=== PATIENT | female | born 1955 | race African-American/Black ===

== ENCOUNTER 2018-07-01 06:24 | Emergency (ER) | payer OTHER ==
[2018-07-01] MEDS ORDERED: SODIUM CHLORIDE 0.9% 1,000 ML IV STA (06:52)
[2018-07-01] MEDS ORDERED: ONDANSETRON 4 MG/2 ML VIAL IVP STA (06:54)
[2018-07-01] MEDS ORDERED: MECLIZINE 12.5 MG TAB PO STA (06:54)
--- NOTE | 2018-07-01 06:54 | ED ---
General Adult HPI - General Source: patient, family Mode of arrival: wheelchair Limitations: no limitations <Hoang Randhawa - Last Filed: 07/01/18 06:53> <Orion Cunningham - Last Filed: 07/01/18 09:00> - General Chief complaint: Dizziness Stated complaint: dizziness - History of Present Illness Initial comments: Dictation was produced using [employer] dictation software. please excuse any grammatical, word or spelling errors. Chief Complaint: 62-year-old -Citizen Of [place] female withpast medical history presents with dizziness, nausea and vomiting. History of Present Illness: Patient is 62-year-old female with no apparent medical problems presents with dizziness, nausea and vomiting since waking this morning. Patient states that she's been feeling nauseated upon waking. She did feel some GERD-like symptoms last night. She went to bed and woke up with symptoms. Patient denies any ataxia. She denies the sensation as if the room is spinning. Denies any diplopia or double vision. She denies any mitigating or exacerbating factors to her dizziness. Patient denies any edema medications. She does smoke tobacco. No history of surgeries. Patient had multiple bouts of clear emesis today. Denies any abdominal pain. Patient has no pain complaints. Patient states she's been having runny nose and cough today. She has sick contacts in the household with her granddaughter. Patient is currently unemployed. The ROS documented in this emergency department record has been reviewed and confirmed by me. Those systems with pertinent positive or negative responses have been documented in the HPI. All other systems are other negative and/or noncontributory. (Hoang Randhawa) - Related Data Previous Rx's Medication Instructions Recorded Meclizine [Antivert] 25 mg PO TID #20 tab 07/01/18 Allergies Allergy/AdvReac Type Severity Reaction Status Date / Time No Known Allergies Allergy Verified 07/01/18 06:29 Review of Systems ROS Other: All systems not noted in ROS Statement are negative. <Hoang Randhawa - Last Filed: 07/01/18 06:53> ROS Other: All systems not noted in ROS Statement are negative. <Orion Cunningham - Last Filed: 07/01/18 09:00> ROS Statement: Those systems with pertinent positive or pertinent negative responses have been documented in the HPI. Past Medical History Past Medical History: No Reported History History of Any Multi-Drug Resistant Organisms: None Reported Past Surgical History: No Surgical Hx Reported Smoking Status: Current every day smoker Past Alcohol Use History: None Reported Past Drug Use History: None Reported <Hoang Randhawa - Last Filed: 07/01/18 06:53> General Exam Limitations: no limitations <Hoang Randhawa - Last Filed: 07/01/18 06:53> <Orion Cunningham - Last Filed: 07/01/18 09:00> - General Exam Comments Initial Comments: PHYSICAL EXAM: General Impression: Alert and oriented x3, not in acute distress HEENT: Normocephalic atraumatic, extra-ocular movements intact, pupils equal and reactive to light bilaterally, mucous membranes moist, poor dentition Cardiovascular: Heart regular rate and rhythm, S1&S2 audible, no murmurs, rubs or gallops Chest: Lungs clear to auscultation bilaterally, no rhonchi, no wheeze, no rales Abdomen: Bowel sounds present, abdomen soft, non-tender, non-distended, no organomegaly Musculoskeletal: Pulses present and equal in all extremities, no peripheral edema Motor: Power 5/5 bilaterally, no focal deficits noted Neurological: CN II-XII grossly intact, no focal motor or sensory deficits noted , not ataxic Skin: Intact with no visualized rashes Psych: Normal affect and mood (Hoang Randhawa) Vital Signs 07/01/18 06:25 Temperature 97.3 F L Pulse Rate 66 Respiratory 16 Rate Blood Pressure 144/88 O2 Sat by Pulse 98 Oximetry Medical Decision Making <Hoang Randhawa - Last Filed: 07/01/18 06:53> - Lab Data Result diagrams: 07/01/18 06:45 07/01/18 06:45 <Orion Cunningham - Last Filed: 07/01/18 09:00> - Medical Decision Making ED course: 62-year-old [place] female presents with chief complaint of dizziness. Vital signs upon arrival are within acceptable limits. Physical examination is benign. Patient has no pain complaints. Neurologically intact. This point highly doubt that patient's dizziness is secondary to posterior circulation stroke or central vertigo. EKGs benign. Patient currently hemodynamically stable. No neuro deficits. (Hoang Randhawa) CT of the brain shows no acute abnormality. Patient had Antivert earlier and she is no longer dizzy. (Orion Cunningham) - Lab Data Lab Results 07/01/18 07/01/18 Range/Units 06:45 06:45 WBC 7.0 (3.8-10.6) k/uL RBC 5.08 (3.80-5.40) m/uL Hgb 13.8 (11.4-16.0) gm/dL Hct 43.8 (34.0-46.0) % MCV 86.2 (80.0-100.0) fL MCH 27.2 (25.0-35.0) pg MCHC 31.6 (31.0-37.0) g/dL RDW 13.4 (11.5-15.5) % Plt Count 234 (150-450) k/uL Neutrophils % 46 % Lymphocytes % 45 % Monocytes % 4 % Eosinophils % 2 % Basophils % 1 % Neutrophils # 3.3 (1.3-7.7) k/uL Lymphocytes # 3.2 (1.0-4.8) k/uL Monocytes # 0.3 (0-1.0) k/uL Eosinophils # 0.2 (0-0.7) k/uL Basophils # 0.0 (0-0.2) k/uL Sodium 142 (137-145) mmol/L Potassium 4.0 (3.5-5.1) mmol/L Chloride 108 H (98-107) mmol/L Carbon Dioxide 25 (22-30) mmol/L Anion Gap 9 mmol/L BUN 13 (7-17) mg/dL Creatinine 0.78 (0.52-1.04) mg/dL Est GFR (CKD-EPI)AfAm >90 (>60 ml/min/1.73 sqM) Est GFR (CKD-EPI)NonAf 83 (>60 ml/min/1.73 sqM) Glucose 120 H (74-99) mg/dL Calcium 9.4 (8.4-10.2) mg/dL Magnesium 1.8 (1.6-2.3) mg/dL Total Bilirubin 0.4 (0.2-1.3) mg/dL AST 16 (14-36) U/L ALT 19 (9-52) U/L Alkaline Phosphatase 63 (38-126) U/L Total Protein 6.7 (6.3-8.2) g/dL Albumin 3.8 (3.5-5.0) g/dL Lipase 80 (23-300) U/L Disposition <Hoang Randhawa - Last Filed: 07/01/18 06:53> Time of Disposition: 09:00 <Orion Cunningham - Last Filed: 07/01/18 09:00> Clinical Impression: Vertigo Disposition: HOME SELF-CARE Condition: Good Instructions: Vertigo (ED) Prescriptions: Meclizine [Antivert] 25 mg PO TID #20 tab Referrals: None,Stated [Primary Care Provider] - 1-2 days
[2018-07-01 07:26] LABS: Basophils % (A) 1 %; Eosinophils # (A) 0.2 k/uL (0-0.7); Eosinophils % (A) 2 %; HCT 43.8 % (34.0-46.0); HGB 13.8 gm/dL (11.4-16.0); Lymphocytes # (A) 3.2 k/uL (1.0-4.8); Lymphocytes % (A) 45 %; MCH 27.2 pg (25.0-35.0); MCHC 31.6 g/dL (31.0-37.0); MCV 86.2 fL (80.0-100.0); Monocytes # (A) 0.3 k/uL (0-1.0); Monocytes % (A) 4 %; Neutrophils # (A) 3.3 k/uL (1.3-7.7); Neutrophils % (A) 46 %; Platelet Count 234 k/uL (150-450); RBC 5.08 m/uL (3.80-5.40); RDW 13.4 % (11.5-15.5)
[2018-07-01 07:37] LABS: ALT 19 U/L (9-52); AST 16 U/L (14-36); Albumin 3.8 g/dL (3.5-5.0); Alkaline Phosphatase 63 U/L (38-126); Anion Gap 9 mmol/L; Blood Urea Nitrogen 13 mg/dL (7-17); Calcium 9.4 mg/dL (8.4-10.2); Carbon Dioxide 25 mmol/L (22-30); Chloride 108 mmol/L (98-107); Glucose 120 mg/dL (74-99); Lipase 80 U/L (23-300); Magnesium 1.8 mg/dL (1.6-2.3); Sodium 142 mmol/L (137-145); Total Bilirubin 0.4 mg/dL (0.2-1.3); Total Protein 6.7 g/dL (6.3-8.2)
[2018-07-01] MEDS ORDERED: MECLIZINE 25 MG TAB PO STA (08:17)
--- NOTE | 2018-07-01 08:53 | CT ---
EXAMINATION TYPE: CT brain wo con DATE OF EXAM: 07/01/2018 COMPARISON: NONE HISTORY: Dizziness CT DLP: 902.1 mGycm Automated exposure control for dose reduction was used. FINDINGS: Central structures are midline. There is no evidence of hydrocephalus. No acute focal lesion, mass ef fect or midline shift is seen. I do not see evidence of intracranial blood. Visualized portions of the paranasal sinuses and mastoids are clear. The bony calvarium is intact. IMPRESSION: NO ACUTE INTRACRANIAL ABNORMALITY.
[2018-07-01 09:10] VITALS: BP 157/84; PULSE 57; RESP 18; TEMP 98.6
== END 2018-07-01 09:09 | disposition home or self-care (01) ==
LOC: EC 06:24
DX: R42 Dizziness and giddiness (principal); R11.2 Nausea with vomiting, unspecified; F17.200 Nicotine dependence, unspecified, uncomplicated
CPT/HCPCS: 36415; 93005; 80053; 83690; 83735; 85025; 70450; 99284; 96374; 96361 ×2; J2405

== ENCOUNTER 2018-11-18 07:34 | Emergency (ER) | payer OTHER ==
[2018-11-18 07:38] VITALS: TEMP 98
[2018-11-18] MEDS ORDERED: KETOROLAC 60 MG/2 ML VIAL IM STA (07:52)
--- NOTE | 2018-11-18 08:00 | ED ---
General Adult HPI - General Chief complaint: Fall Stated complaint: Fall, rib pain Time Seen by Provider: 11/18/18 07:35 Source: patient, RN notes reviewed Mode of arrival: wheelchair Limitations: no limitations - History of Present Illness Initial comments: This is a 62-year-old female who presents emergency Department complaining of right posterior rib pain. Patient states she was going down steps and she slipped and landed on the steps on her right posterior rib region. Patient denies any difficulty breathing patient denies any anterior chest pain or rib pain. Patient states she hurt her shoulder little but she has full range of motion and thinks it's just contusion there. Patient denies any lower extremity injury. Patient denies any lower back injury. Patient denies any central back injury. Patient denies hitting her head patient denies hitting her neck patient denies any numbness or weakness. - Related Data Previous Rx's Medication Instructions Recorded Meclizine [Antivert] 25 mg PO TID #20 tab 07/01/18 Ibuprofen [Motrin] 600 mg PO Q6HR PRN #20 tab 11/18/18 Allergies Allergy/AdvReac Type Severity Reaction Status Date / Time No Known Allergies Allergy Verified 11/18/18 07:38 Review of Systems ROS Statement: Those systems with pertinent positive or pertinent negative responses have been documented in the HPI. ROS Other: All systems not noted in ROS Statement are negative. Past Medical History Past Medical History: No Reported History History of Any Multi-Drug Resistant Organisms: None Reported Past Surgical History: No Surgical Hx Reported Past Psychological History: No Psychological Hx Reported Smoking Status: Current every day smoker Past Alcohol Use History: None Reported Past Drug Use History: None Reported General Exam - General Exam Comments Initial Comments: GENERAL: Patient is well-developed and well-nourished. Patient is nontoxic and well- hydrated and is in mild distress. ENT: Neck is soft and supple. No significant lymphadenopathy is noted. Oropharynx is clear. Moist mucous membranes. Neck has full range of motion without eliciting any pain. EYES: The sclera were anicteric and conjunctiva were pink and moist. Extraocular movements were intact and pupils were equal round and reactive to light. Eyelids were unremarkable. PULMONARY: Unlabored respirations. Good breath sounds bilaterally. No audible rales rhonchi or wheezing was noted. CARDIOVASCULAR: There is a regular rate and rhythm without any murmurs gallops or rubs. ABDOMEN: Soft and nontender with normal bowel sounds. SKIN: Skin is clear with no lesions or rashes and otherwise unremarkable. NEUROLOGIC: Patient is alert and oriented x3. Cranial nerves II through XII are grossly intact. Motor and sensory are also intact. Normal speech, volume and content. Symmetrical smile. MUSCULOSKELETAL: Normal extremities with adequate strength and full range of motion. LYMPHATICS: No significant lymphadenopathy is noted PSYCHIATRIC: Normal psychiatric evaluation. Limitations: no limitations Course Vital Signs 11/18/18 07:36 Temperature 98.0 F Pulse Rate 73 Respiratory 18 Rate Blood Pressure 160/89 O2 Sat by Pulse 100 Oximetry Medical Decision Making - Medical Decision Making Chest x-ray shows no acute abnormality. Shoulder x-ray shows no acute normalities. Patient had relief with the Toradol. Disposition Clinical Impression: Chest wall pain Disposition: HOME SELF-CARE Condition: Good Instructions (If sedation given, give patient instructions): Chest Wall Pain ( ED) Prescriptions: Ibuprofen [Motrin] 600 mg PO Q6HR PRN #20 tab PRN Reason: For pain Is patient prescribed a controlled substance at d/c from ED?: No Referrals: None,Stated [Primary Care Provider] - 1-2 days Time of Disposition: 09:00
--- NOTE | 2018-11-18 08:29 | XR ---
EXAMINATION TYPE: XR shoulder limited RT DATE OF EXAM: 11/18/2018 COMPARISON: NONE HISTORY: Pain TECHNIQUE: 2 views submitted FINDINGS: Mild hypertrophic change of the AC joint. Soft tissue ossification or calcification along t he upper margin of the scapula. Lung fregoso are clear. Osseous structures intact. IMPRESSION: Mild AC joint arthropathy
--- NOTE | 2018-11-18 08:30 | XR ---
EXAMINATION TYPE: XR chest 2V DATE OF EXAM: 11/18/2018 COMPARISON: NONE TECHNIQUE: PA and lateral views submitted. HISTORY: Pain FINDINGS: The lungs are clear and there is no pneumothorax, pleural effusion, or focal pneumonia. Arthropathy of the AC joints. Mild hypertrophic change of the vertebral column. IMPRESSION: 1. No acute process.
[2018-11-18 09:16] VITALS: BP 163/98; PULSE 67; RESP 20
== END 2018-11-18 09:16 | disposition home or self-care (01) ==
LOC: EC 07:34
DX: R07.89 Other chest pain (principal); F17.200 Nicotine dependence, unspecified, uncomplicated; W10.9XXA Fall (on) (from) unspecified stairs and steps, initial encounter; Y93.01 Activity, walking, marching and hiking; Y92.009 Unspecified place in unspecified non-institutional (private) residence as the place of occurrence of the external cause
CPT/HCPCS: 73020; 71046; 99283; 96372; J1885

== ENCOUNTER 2018-12-21 19:42 | Emergency (ER) | payer OTHER ==
[2018-12-21 19:47] VITALS: TEMP 98.8
[2018-12-21] MEDS ORDERED: SODIUM CHLORIDE 0.9% 1,000 ML IV STA (20:11)
[2018-12-21] MEDS ORDERED: ACETAMINOPHEN TAB 500 MG TAB PO STA (20:11)
[2018-12-21] MEDS ORDERED: ONDANSETRON 4 MG/2 ML VIAL IVP STA (20:22)
--- NOTE | 2018-12-21 20:52 | XR ---
EXAMINATION TYPE: XR chest 2V DATE OF EXAM: 12/21/2018 COMPARISON: 11/18/2018 HISTORY: Pain TECHNIQUE: Frontal and lateral views of the chest are obtained. FINDINGS: There is no heart failure nor confluent pneumonic infiltrate. Costophrenic angles are concepción r. Bony thorax is intact. Mediastinum appears normal. IMPRESSION: No active cardiopulmonary disease. No change. Normal heart.
--- NOTE | 2018-12-21 21:16 | ED ---
General Adult HPI - General Chief complaint: Headache Stated complaint: Headache & vomiting Time Seen by Provider: 12/21/18 19:53 Source: patient, family, RN notes reviewed, old records reviewed Mode of arrival: wheelchair Limitations: no limitations - History of Present Illness Initial comments: 63-year-old female patient with no pertinent past medical history presents to ER with 1 day of myalgias, fevers and chills, nausea vomiting, waxing and waning headaches. Cough productive with mucus. Patient states that all the symptoms began today. Patient denies any abdominal pain. Patient denies any chest pain shortness of breath. Patient denies any other complaints. Systemic: Pt denies fatigue, rash. Pt denies weakness, night sweats, weight loss . Neuro: Pt denies headache, visual disturbances, syncope or pre-syncope. HEENT: Pt denies ocular discharge or irritation, otalgia, rhinorrhea, pharyngitis or notable lymphadenopathy. Cardiopulmonary: Pt denies chest pain, SOB, heart palpitations, dyspnea on exertion. Abdominal/GI: Pt denies abdominal pain, n/v/d. : Pt denies dysuria, burning w/ urination, frequency/urgency. Denies new onset urinary or bowel incontinence. MSK: Pt denies loss of strength or function in extremities. Neuro: Pt denies new onset weakness, paresthesias. - Related Data Previous Rx's Medication Instructions Recorded Ondansetron Odt [Zofran ODT] 4 mg PO Q8HR PRN #20 tab 12/21/18 Oseltamivir [Tamiflu] 75 mg PO Q12HR 5 Days cap 12/21/18 Allergies Allergy/AdvReac Type Severity Reaction Status Date / Time No Known Allergies Allergy Verified 12/21/18 20:07 Review of Systems ROS Statement: Those systems with pertinent positive or pertinent negative responses have been documented in the HPI. ROS Other: All systems not noted in ROS Statement are negative. Past Medical History Past Medical History: No Reported History History of Any Multi-Drug Resistant Organisms: None Reported Past Surgical History: No Surgical Hx Reported Past Psychological History: No Psychological Hx Reported Smoking Status: Current every day smoker Past Alcohol Use History: None Reported Past Drug Use History: None Reported General Exam - General Exam Comments Initial Comments: Constitutional: NAD, AOX3, Pt has pleasant affect. HEENT: NC/AT, trachea midline, neck supple, no lymphadenopathy. Posterior pharynx non erythematous, without exudates. External ears appear normal, without discharge. Mucous membranes moist. Eyes PERRLA, EOM intact. There is no scleral icterus. No pallor noted. Cardiopulmonary: RRR, no murmurs, rubs or gallops, no JVD noted. Lungs CTAB in anterior and posterior fregoso. No peripheral edema. Abdominal exam: Abdomen soft and non-distended. Abdomen non-tender to palpation in all 4 quadrants. Bowel sounds active in LLQ. No hepatosplenomegaly. No ecchymosis Neuro: CN II-XII grossly intact. No nuchal rigidity. MSK: No posterior calf tenderness bilaterally, homans sign negative bilaterally. Posterior tibialis and radial pulse +2 bilaterally. Sensation intact in upper and lower extremities. Full active ROM in upper and lower extremities, 5/5 stregnth. Limitations: no limitations Course Vital Signs 12/21/18 19:45 Temperature 98.8 F Pulse Rate 100 Respiratory 20 Rate Blood Pressure 129/78 O2 Sat by Pulse 97 Oximetry Medical Decision Making - Medical Decision Making 63-year-old female patient with no pertinent past medical history presents to ER with 1 day of myalgias, fevers and chills, nausea vomiting, waxing and waning headaches. Cough productive with mucus. Patient states that all the symptoms began today. Patient denies any abdominal pain. Patient denies any chest pain shortness of breath. Patient denies any other complaints. Vital signs stable afebrile. Physical exam denies acute pathology. Laboratory investigations revealed positive influenza A. Chest x-ray revealed no acute process. Patient diagnosis influenza. Explained findings to patient. Patient verbalized understanding. Patient to be prescribed Tamiflu. Patient will use Tylenol and Motrin as needed for fever/myalgia. Patient also prescribed Zofran as needed for nausea and vomiting. Patient to follow-up with primary care provider in 1-2 days. Patient return to ER condition worsens in any way. Case discussed with Dr. Adler. - Lab Data Lab Results 12/21/18 Range/Units 20:20 Influenza Type A RNA Detected H (Not Detectd) Influenza Type B (PCR) Not Detected (Not Detectd) Disposition Clinical Impression: Influenza A Disposition: HOME SELF-CARE Condition: Stable Instructions (If sedation given, give patient instructions): Influenza (ED) Additional Instructions: Patient to adhere to previously discussed treatment plan and will take medication(s) as directed. Patient to follow up with PCP in 1-2 days. Patient to return to ED if symptoms do not improve. Please take medications as directed. Please use Tylenol and Motrin as needed for fever, myalgia, headaches. Please use Zofran as needed for nausea and vomiting. Please return to ER if condition worsens. Prescriptions: Oseltamivir [Tamiflu] 75 mg PO Q12HR 5 Days cap Ondansetron Odt [Zofran ODT] 4 mg PO Q8HR PRN #20 tab PRN Reason: Nausea Is patient prescribed a controlled substance at d/c from ED?: No Referrals: None,Stated [Primary Care Provider] - 1-2 days [facility] [place] Marianna monae [NON-STAFF] - 1-2 days
[2018-12-21 21:41] VITALS: BP 130/78; PULSE 85; RESP 18
== END 2018-12-21 21:40 | disposition home or self-care (01) ==
LOC: EC 19:42
DX: J10.1 Influenza due to other identified influenza virus with other respiratory manifestations (principal); R11.2 Nausea with vomiting, unspecified; F17.200 Nicotine dependence, unspecified, uncomplicated
CPT/HCPCS: 99284; 96374; 96361; 87502; 71046; J2405

== ENCOUNTER 2020-11-05 15:51 | Emergency (ER) | payer OTHER ==
[2020-11-05 16:12] VITALS: BP 148/96; PULSE 88; RESP 18; TEMP 98.6
--- NOTE | 2020-11-05 17:26 | ED ---
General Adult HPI - General Chief complaint: Upper Respiratory Infection Stated complaint: Coughing Time Seen by Provider: 11/05/20 16:27 Source: patient Mode of arrival: ambulatory Limitations: no limitations - History of Present Illness Initial comments: 64-year-old female without any significant past medical history presents to the emergency room for a chief complaint of cough. Patient has had a cough for the past 3 days. She reports that she gets this every now and then and needs an antibiotic. Patient denies fevers or she does not want any testing. She denies any shortness of breath or chest pain. Patient denies any constitutional symptoms. Denies any recent coronavirus exposures.Patient has no other complaints at this time including shortness of breath, chest pain, abdominal pain, nausea or vomiting, headache, or visual changes. - Related Data Previous Rx's Medication Instructions Recorded Ondansetron Odt [Zofran ODT] 4 mg PO Q8HR PRN #20 tab 12/21/18 Oseltamivir [Tamiflu] 75 mg PO Q12HR 5 Days cap 12/21/18 Azithromycin [Zithromax Z-pack (6 250 mg PO DIRECTED #6 tab 11/05/20 tabs)] Benzonatate [Tessalon Perles] 200 mg PO Q8H PRN #15 capsule 11/05/20 Allergies Allergy/AdvReac Type Severity Reaction Status Date / Time No Known Allergies Allergy Verified 12/21/18 20:07 Review of Systems ROS Statement: Those systems with pertinent positive or pertinent negative responses have been documented in the HPI. ROS Other: All systems not noted in ROS Statement are negative. Past Medical History Past Medical History: No Reported History History of Any Multi-Drug Resistant Organisms: None Reported Past Surgical History: Section Past Psychological History: No Psychological Hx Reported Smoking Status: Current every day smoker Past Alcohol Use History: None Reported Past Drug Use History: None Reported General Exam Limitations: no limitations General appearance: alert Head exam: Present: atraumatic Eye exam: Present: normal appearance, PERRL, EOMI. Absent: scleral icterus ENT exam: Present: normal exam, mucous membranes moist Neck exam: Present: normal inspection, full ROM. Absent: tenderness Respiratory exam: Present: normal lung sounds bilaterally. Absent: respiratory distress, wheezes, rales, rhonchi, stridor Cardiovascular Exam: Present: regular rate, normal rhythm, normal heart sounds GI/Abdominal exam: Present: soft, normal bowel sounds. Absent: distended, tenderness Neurological exam: Present: alert Course Vital Signs 11/05/20 11/05/20 16:07 17:02 Temperature 98.6 F Pulse Rate 88 Respiratory 18 18 Rate Blood Pressure 148/96 O2 Sat by Pulse 97 Oximetry Medical Decision Making - Medical Decision Making I did recommend coronavirus testing as well as a chest x-ray. However patient adamantly refused this stating she does not need any testing, just needs medication for her cough Despite recommendations. Patient will be given azithromycin and Tessalon Perles. I discussed quarantine as she has not been tested for coronavirus and given a cough could be contagious. She will follow up with her doctor and return for any worsening symptoms. I discussed this case with attending Dr. Cruz who agrees with this assessment and treatment plan. Disposition Clinical Impression: Cough Disposition: HOME SELF-CARE Condition: Good Instructions (If sedation given, give patient instructions): Acute Cough (ED) Additional Instructions: Please take antibiotic as directed. As you did not want coronavirus testing we recommend that you quarantine for 10 days as we cannot rule this out and you could be contagious. If you have shortness of breath or worsening symptoms return to the emergency room. Prescriptions: Benzonatate [Tessalon Perles] 200 mg PO Q8H PRN #15 capsule PRN Reason: Cough Azithromycin [Zithromax Z-pack (6 tabs)] 250 mg PO DIRECTED #6 tab Is patient prescribed a controlled substance at d/c from ED?: No Referrals: Sophie Banda MD [REFERRING] - 1-2 days Time of Disposition: 17:23
== END 2020-11-05 18:00 | disposition home or self-care (01) ==
LOC: EC 15:51
DX: R05 Cough (principal); F17.200 Nicotine dependence, unspecified, uncomplicated
CPT/HCPCS: 99283